=== PATIENT | male | born 1990 ===

== ENCOUNTER 2017-05-31 11:19 | Emergency (ER) | payer SELFPAY ==
[2017-05-31 11:19] VITALS: BMI 23.2
[2017-05-31] MEDS ORDERED: Alum-Mag Hydrox-Simethicone Susp (30 mL) PO STA (13:23)
--- NOTE | 2017-05-31 13:24 | C.PDOC ---
History Of Present Illness 27 y/o male brought to ED by EMS requesting ETOH detox. Patient reports last use was earlier this morning and currently complaints of epigastric discomfort. No other complaints at this time. Time Seen by Provider: 05/31/17 13:20 Chief Complaint (Nursing): Substance Abuse History Per: Patient History/Exam Limitations: no limitations Onset/Duration Of Symptoms: Days Current Symptoms Are (Timing): Still Present Suicide/Self Injury Attempted (Context): None Modifying Factor(s): Alcohol Past Medical History Reviewed: Historical Data, Nursing Documentation, Vital Signs Vital Signs: Last Vital Signs Temp 98.7 F 05/31/17 13:44 Pulse 98 H 05/31/17 13:44 Resp 20 05/31/17 13:44 BP 118/76 05/31/17 13:44 Pulse Ox 99 05/31/17 13:44 - Medical History PMH: No Chronic Diseases Surgical History: No Surg Hx Family History: States: No Known Family Hx - Social History Hx Alcohol Use: Yes Hx Substance Use: Yes Review Of Systems Constitutional: Negative for: Fever, Chills Cardiovascular: Negative for: Chest Pain Gastrointestinal: Positive for: Abdominal Pain. Negative for: Nausea, Vomiting Skin: Negative for: Rash Physical Exam - Physical Exam Appears: Non-toxic, No Acute Distress, Other (ETOH on breath) Skin: Warm, Dry, No Rash Head: Atraumatic, Normacephalic Eye(s): bilateral: Normal Inspection Oral Mucosa: Moist Neck: Normal ROM, Supple Cardiovascular: Rhythm Regular Respiratory: Normal Breath Sounds, No Rales, No Rhonchi, No Wheezing Gastrointestinal/Abdominal: Soft, No Tenderness, No Guarding, No Rebound Back: No CVA Tenderness Neurological/Psych: Oriented x3, Normal Speech, Normal Cognition ED Course And Treatment O2 Sat by Pulse Oximetry: 93 (RA) Pulse Ox Interpretation: Normal Medical Decision Making Medical Decision Making: alcoholic ? gastritis opt f/u for availability for etoh detox Disposition Doctor Will See Patient In The: Office Counseled Patient/Family Regarding: Studies Performed, Diagnosis - Disposition Referrals: Alcoholics Anonymous [Outside] [facility] [Outside] [facility] [Outside] [facility] [Outside] Disposition: HOME/ ROUTINE Disposition Time: 13:24 Condition: GOOD Additional Instructions: gastritis: Pepcid 20 mg en la noche para bajar el acides del estomago Maalox 30 cc (zita cucharada) cada 3 horas marcos necessario trena el excesso del alcohol- se [place] gastritis Detox: sigue con nuestros servicios de [facility] [place] para nichol desponibilidad de Detox: numeros de Crisis /Detox presentado. Sigue en nuest[facility] para ramo cuidados normales Instructions: Gastritis, Alcohol Use - When Is Drinking a Problem? Forms: [employer]bird bio (Swedish) Print Language: DUTCH - Clinical Impression Clinical Impression: Alcohol dependence, Gastritis - Scribe Statement The provider has reviewed the documentation as recorded by the Scribmanav Irving All medical record entries made by the Scribe were at my direction and personally dictated by me. I have reviewed the chart and agree that the record accurately reflects my personal performance of the history, physical exam, medical decision making, and the department course for this patient. I have also personally directed, reviewed, and agree with the discharge instructions and disposition.
[2017-05-31] MEDS ORDERED: Aluminum Hydroxide/Magnesium Hydroxide Susp (30 mL) ONE (13:37)
[2017-05-31 13:46] VITALS: BP 118/76; PULSE 98; RESP 20; TEMP 98.7
[2017-05-31 14:03] VITALS: O2SAT 93
== END 2017-05-31 13:45 | disposition home or self-care (01) ==
LOC: C.ER 11:19
DX: F10.20 Alcohol dependence, uncomplicated (principal); K29.70 Gastritis, unspecified, without bleeding